=== PATIENT | male | born 1925 | race Hispanic/Latino ===

== ENCOUNTER 2016-12-07 07:25 | Emergency (ER) | payer OTHER ==
[~2016-12-07] VITALS: Ht 157.5 cm; Wt 49.8 kg
[~2016-12-07 07:25] MED LIST: ACETAMINOPHEN-120 ML PO; ADVAIR 100/501 DISK IH; ALPRAZOLAM0.25 M2 PO; ARTIFICIAL TEAR15 M1 BOTH EYES; CARVEDILOL3.125 MG PO; CLONAZEPAM0.5 MG PO; DIGOX250 MCG PO; DIMENHYDRINATE50 MG PO; DOXYCYCLINE HY100 M3 PO; FLOMAX0.4 MG PO; FUROSEMIDE40 MG PO; OMEPRAZOLE40 M1 PO; POLYETHYLENE GL17 GM PO; SEROQUEL12.5 MG PO; SERTRALINE HCL50 MG PO; SPIRIVA RESPIMAT4 GM IH; TYLENOL EXTRA500 MG PO; VENTOLIN HFA18 GM IH; ZOLOFT25 MG PO; ZYPREXA5 MG PO; [UNRECOGNIZED DRUG - OTHER] PO
[2016-12-07 08:35] LABS: HEMATOCRIT 40.5 % (38.0-50.0); MCH 31.7 PG (29.0-34.0); MCHC 29.6 G/DL (30.0-36.0); MEAN PLAT.VOLUME 10.9 uM^3 (9.0-12.4); RBC DIS.WIDTH-CV 14.9 % (11.8-14.6); RBC DIS.WIDTH-SD 58.8 % (39-53); RED BLOOD COUNT 3.78 M/uL (4.00-5.50); WHITE BLOOD COUNT 4.1 K/uL (4.1-10.2)
[2016-12-07 08:43] LABS: CHLORIDE 130 mEq/L (99-109); POTASSIUM 3.4 mEq/L (3.7-5.4)
[2016-12-07 08:45] LABS: GLUCOSE 87 mg/dL (70-99)
[2016-12-07 08:47] LABS: MCV 107.1 FL (86-99); PLATELET COUNT 126 K/uL (156-360); TOTAL BILIRUBIN 1.3 mg/dL (0.0-1.0)
[2016-12-07 08:48] LABS: ANION GAP 14 MEQ/L (2-14)
[2016-12-07 08:49] LABS: ALKALINE PHOSPHATASE 75 IU/L (3-129); GFR ESTIMATE (CALCULATED) 24 mL/min/
[2016-12-07 08:50] LABS: UREA NITROGEN (BUN) 63 mg/dL (9-23)
[2016-12-07 09:09] LABS: ADD MIUA? YES; BILIRUBIN NEGATIVE; BLOOD SMALL; COLOR AMBER ((YELLOW)); GLUCOSE (STRIP) NEGATIVE; KETONES NEGATIVE; LEUKOCYTES MODERATE; NITRITE NEGATIVE; PROTEIN (STRIP) 100; SPECIFIC GRAVITY 1.019 (1.000-1.030)
[2016-12-07 09:24] LABS: SODIUM 174 mEq/L (136-147)
[2016-12-07 09:47] LABS: WHITE BLOOD CELLS 15-20 /HPF (0-5)
[2016-12-07 09:48] LABS: BACTERIA 3+ /HPF; CASTS PRESENT /LPF; EPITHELIAL CELLS NONE SEEN /HPF; MUCUS NONE SEEN /LPF
[2016-12-07 10:17] LABS: ABS NEUTROPHIL COUNT 2.2; ANISOCYTOSIS 1+; EOSINOPHIL ABS CT 0; PLAT.SUFFICIENCY DECREASED
[2016-12-07 13:04] VITALS: BP 56/33
== END 2016-12-07 13:12 | disposition hospice, home (50) ==
LOC: EME 07:25
PROVIDERS: Physician Assistant
DX: A41.9 Sepsis, unspecified organism (principal); J44.0 Chronic obstructive pulmonary disease with (acute) lower respiratory infection; J18.9 Pneumonia, unspecified organism; E87.0 Hyperosmolality and hypernatremia; E86.0 Dehydration; I10 Essential (primary) hypertension; K21.9 Gastro-esophageal reflux disease without esophagitis; Z86.73 Personal history of transient ischemic attack (TIA), and cerebral infarction without residual deficits; R64 Cachexia; Z68.20 Body mass index [BMI] 20.0-20.9, adult; Z66 Do not resuscitate; Z51.5 Encounter for palliative care; Z87.891 Personal history of nicotine dependence
CPT/HCPCS: 71010; 80053; 81003; 83605; 85025; 99281; 99285; J2270; J7030